=== PATIENT | female | born 1990 | race Caucasian/White ===

== ENCOUNTER → 2018-09-07 | Outpatient (REF) | payer OTHER | LOC: M SFHCLERA 12:34 | PROVIDERS: ATTEND Nurse Practitioner Family | DX: J02.9 Acute pharyngitis, unspecified (principal) ==

== ENCOUNTER 2020-03-29 08:22 | Day surgery (SDC) | payer OTHER ==
[~2020-03-29] VITALS: Ht 160 cm; Wt 86.2 kg
[~2020-03-29 08:22] MED LIST: CEFUROXIME 1MG/0.1ML INTRACAMERAL INJ As Ordered ONE; DUOVISC (0.50ML VISCOAT/0.55ML PROVISC) OPHTH KIT As Ordered ONE; MIDAZOLAM INJ 2MG/2ML VIAL (J2250 PER 1MG) As Ordered ONE; OFLOXACIN 0.3 % (OCUFLOX) OPTH SOL 5ML OS ONE; PHENYLEPHRINE 2.5% OPHTH SOL 2ML OS ONE; POVIDONE-IODINE 5% OPHTH PREP SOL 30ML As Ordered ONE; PROPARACAINE 0.5% OPHTH SOL 15ML OS ONE; TROPICAMIDE 1% OPHTH SOLN 2ML OS ONE; fentaNYL 100 MCG/2 ML INJECTION (J3010) As Ordered ONE
[2020-03-29] MEDS ORDERED: BSS IRR 500ML/OMIDRIA 4ML IRR BAG (OR ONLY) As Ordered ONE (09:57)
[2020-03-29 10:55] VITALS: BP 130/75
--- NOTE | 2020-03-30 10:21 | RO ---
OPERATIVE NOTE DATE OF OPERATION: 03/29/2020 PREOPERATIVE DIAGNOSIS: 1. Visually significant nuclear sclerotic cataract, left eye. POSTOPERATIVE DIAGNOSIS: 1. Visually significant nuclear sclerotic cataract, left eye. PROCEDURE: 1. Cataract extraction with use of phacoemulsification, and placement of intraocular lens, AU00T0, 7.0 D, left eye. SURGEON: Nikolai Cottrell DO ANESTHESIA: Local (Omidria with MAC) COMPLICATIONS: None POSTOPERATIVE CONDITION: Stable INDICATIONS FOR SURGERY: 1. Blurred vision affecting patient's activities of daily living. DESCRIPTION OF PROCEDURE: The patient was seen in the preoperative area and properly identified. The correct operative eye was identified and marked. The patient received topical anesthetic, antibiotics, and topical dilating drops. The patient was then transferred to the operating room. The correct side was re-identified and a time-out was performed. The eye was prepped and draped in a sterile fashion. The eyelids were isolated with Tegaderm tape and the lids were held open with an adjustable speculum. A 1.0mm paracentesis incision was made. Omidria was then injected into the anterior chamber. Viscoelastic was then injected into the anterior chamber through the paracentesis. Using a 2.4mm sharp-tipped keratome, the anterior chamber was entered via a temporal clear cornea incision. A continuous curvilinear capsulorrhexis was created with Utrata forceps. Hydrodissection was performed with BSS on a blunt cannula until the nucleus was able to rotate freely. The crystalline lens was phacoemulsified and aspirated. Irrigation/aspiration was used to remove the cortical material Cohesive viscoelastic was placed into the capsular bag to deepen it. The implant was placed into the capsular bag and allowed to unfold. Placement was confirmed by visualizing the anterior capsulorrhexis. Irrigation/aspiration was used to remove the viscoelastic. The clear corneal incision was hydrated with BSS on a blunt cannula. The lens was well positioned. Intracameral antibiotic was injected into the anterior chamber. The incisions were then tested for leaks and found to be negative. The eye was then palpated for appropriate pressure and adjusted accordingly with BSS. The eyelid speculum was then carefully removed. A shield was placed over the eye. The patient tolerated the procedure well and was discharge to the recovery unit in a stable condition.
== END 2020-03-29 11:05 | disposition home or self-care (01) ==
LOC: M SDC 08:22
PROVIDERS: ATTEND Ophthalmology
DX: H25.12 Age-related nuclear cataract, left eye (principal); K21.9 Gastro-esophageal reflux disease without esophagitis; F41.9 Anxiety disorder, unspecified; E73.9 Lactose intolerance, unspecified
CPT/HCPCS: 66984; 81025; J1097; J2250; J3010; L8699

== ENCOUNTER 2020-04-05 08:13 | Day surgery (SDC) | payer OTHER ==
[~2020-04-05] VITALS: Ht 160 cm; Wt 88.4 kg
[~2020-04-05 08:13] MED LIST changes: +OFLOXACIN 0.3 % (OCUFLOX) OPTH SOL 5ML OD ONE; -OFLOXACIN 0.3 % (OCUFLOX) OPTH SOL 5ML OS ONE; +PHENYLEPHRINE 2.5% OPHTH SOL 2ML OD ONE; -PHENYLEPHRINE 2.5% OPHTH SOL 2ML OS ONE; +PROPARACAINE 0.5% OPHTH SOL 15ML OD ONE; -PROPARACAINE 0.5% OPHTH SOL 15ML OS ONE; +TROPICAMIDE 1% OPHTH SOLN 2ML OD ONE; -TROPICAMIDE 1% OPHTH SOLN 2ML OS ONE
--- OUTSIDE RECORDS SUMMARY | 2020-04-05 08:19 | CCD | Continuity of Care Document ---
Author Author Maria Esther ALEXIS FLOORING HELPER Organization Unknown Address [facility] [address] [place] [address] Phone [phone] Care Team Providers Care Assembler Utility Buildings Name Role Phone [facility] AUTM [phone] Problems Active Problems Provider Date Family problems Aren Alexis LCSW Onset: 11/10/2019 Anxiety state Aren Alexis LCSW Onset: 11/10/2019 Social History Type Date Description Comments Sex Unknown Allergies, Adverse Reactions, Alerts Active Allergies Reaction Severity Comments Date NKDA 12/01/2019 Lactose (Intolerance) 2019 NKEA 12/01/2019 Medications Active Medications SIG Qnty Indications Ordering Provide r Date Multivitamin Adult Tablets Unknown Immunizations Description No Information Available Vital Signs Date Vital Result Comment 12/01/2019 12:59pm BP Systolic Sitting 122 mmHg BP Diastolic Sitting 75 mmHg Heart Rate 78 /min Body Temperature 98.1 F Oral Respiratory Rate 16 /min O2 % BldC Oximetry 98 % Weight 200.50 lb Weight 90.947 kg Height 63 inches 5'3" BMI (Body Mass Index) 35.5 kg/m2 BSA (Body Surface Area) 1.94 m2 Results Test Acquired Date Facility Test Result H/L Range Note [facility] Toxassure Select 13 12/01/2019 Alondra veliz Summary Report (Summary) FINAL 1, 2 PDF . 1 {DIAGNOSIS: F41.8~{MEDICATI ONS/DECLARED: NO MEDCATIONS PRESCIBED~{PRESCRIPTION INFO:~{PRESCRIPT 2 TOXASSURE SELECT 13 (MW) Test Result Flag Units NO DRUGS DETECTED. Test Result Flag Units Ref Range Creatinine 121 mg/dL >=20 Declared Medications: The flagging and interpretation on this report are based on the following declared medications. Unexpected results may arise from inaccuracies in the declared medications. No medication use reported. For clinical consultation, please call . Procedures Date Code Description Status 01/27/2020 44217 Psychiatric Diag Eval W/Medical Service Completed 11/10/2019 51214 Psychiatric Diagnostic Evaluatio n Completed Medical Devices Description No Information Available Encounters Description No Information Available Assessments Date Code Description Provider 01/27/2020 F41.0 Panic disorder [episodic paroxys mal anxiety] Rolando Marina PA-C 01/16/2020 F41.8 Other specified anxiety disorder s Aren Alexis, [facility] 01/16/2020 Z63.0 Problems in relationship with sp ouse or partner Aren Pickens, [facility] 12/16/2019 F41.8 Other specified anxiety disorder s Aren Alexis, [facility] 12/16/2019 Z63.0 Problems in relationship with sp ouse or partner Aren Reuben, [facility] 12/01/2019 F41.8 Other specified anxiety disorder s Isabel Jones, RN 12/01/2019 Z63.0 Problems in relationship with sp ouse or partner Isabel Jones, RN 11/28/2019 F41.8 Other specified anxiety disorder s Aren Alexis, [facility] 11/28/2019 Z63.0 Problems in relationship with sp ouse or partner Aren Pickens, [facility] 11/10/2019 F41.8 Other specified anxiety disorder s Aren Alexis, [facility] 11/10/2019 Z63.0 Problems in relationship with sp ouse or partner Aren Reuben, [facility] Plan of Treatment Future Appointment(s):* 03/22/2020 11:00 am - [facility] * 03/01/2020 11:00 am - Aren Alexis LCSW at [facility] Functional Status Description No Information Available Mental Status Description No Information Available Referrals Description No Information Available
--- OUTSIDE RECORDS SUMMARY | 2020-04-05 08:19 | CCD ---
Author Author Donn Santos MD [facility] Organization Donn Santos MD [facility] Address [address] [address] Phone Care Team Providers Care Water Aerobics Instructor Name Role Phone Simba COLLIER Nikolai Unavailable [phone] Reason for Referral No Reason for Referral Recorded Problems Includes: Active, inactive, and resolved Problems All Visits Onset Date - Time Resolved Date - Time Provider Co ndition Status Cataract Senile Posterior Subcapsular Polar 02/03/2020 - 12:00AM Nikolai Cottrell DO Active Posterior Vitreous Detachment 02/03/2020 - 12:00AM Maycol Cottrell DO Active Plan of Treatment Referrals To Diagnosis Referral to [facility] Donn Santos MD, FACS Vitreous de generation, bilateral Future Appointments Date Time Location Provider POST OP VISIT WITH PRE-OP 03/30/2020 1:20PM Donn chapa MD [facility] Nikolai Cottrell DO Extracapsular cataract removal w/IOL implant 04/05/2020 8:0 0AM [facility] Nikolai Cottrell DO 1 Week Post OP 04/13/2020 1:20PM Donn Santos MD [facility] Darnell attleslie Cottrell DO Findings Encounter Date Requested Referred to: Dr. Duek NEW PATIENT WITH R EFERRAL with Nikolai Cottrell DO 02/03/2020 Assessments Includes: Assessments for all patient encounters Findings Encounter Date Posterior subcapsular polar senile cataract 1 WK PREOP FOR SURGERY with Nikolai Cottrell DO 03/19/2020 Posterior subcapsular polar senile cataract NEW PATIEN T WITH REFERRAL with Nikolai Cottrell DO 02/03/2020 Posterior vitreous detachment NEW PATIENT WITH REFERRA L with Nikolai Cottrell DO 02/03/2020 Instructions Instructions not supported for this document typeNo Instructions Recorded Medical Equipment - Implanted Devices Includes: Current and historical DevicesNo Medical Equipment Recorded Medications Includes: Current and historical Medications Current Medications (continue as prescribed) Moxifloxacin HCl 0.5% Ophthalmic Solution 03/19/2020 Provider: Nikolai Cottrell DO Diagnosis: 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, bilateral Three days prior to surgery start one drop four times a day in the left eye Durezol 0.05% Ophthalmic Emulsion 03/19/2020 Provid er: Nikolai Cottrell DO Diagnosis: 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, bilateral Day of surgery remove patch start one drop four times a day in the left eye Ilevro 0.3% Ophthalmic Suspension 03/19/2020 Provid er: Nikolai Cottrell DO Diagnosis: 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, bilateral Three days prior to surgery start one drop two times a day i n the left eye Medications Administered Includes: Administered Medications in patient's chartNo Administered Medications Recorded Vital Signs Includes: Vital Signs from 03/30/2019 through 03/30/2020No Vital Signs Recorded For Specified Dates Results Includes: Results from 03/30/2019 through 03/30/2020No Results Recorded For Specified Dates History of Present Illness History of Present Illness not supported for this document typeNo History of Present Illness Recorded Social History Description Last Updated Smoking 2 cigarettes per day 02/03/2020 Current smoker 02/03/2020 Not using alcohol 02/03/2020 Not using drugs 02/03/2020 Tobacco use 02/03/2020 Smoking status : Current everyday smoker 02/03/2020 Procedures and Surgical History Includes: Procedures from 03/30/2019 through 03/30/2020 Procedures Code Diagnosis Performing Provider Service Location Service Date Intermediate Eye Exam Established Patient (Signi/Sep Eval. & Man.) 71453 Posterior subcapsular polar age-related cataract, left eye Nikolai Goodman MD [facility] 03/19/2020 Ophthalmic biometry - IOL Master with IOL calculation (Left side) 68281 Posterior subcapsular polar age-related cataract, left eye Nikolai Goodman MD [facility] 03/19/2020 Medical Eye Exam 03966 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, bilateral, Vitreous degeneration, bilateral Nikolai Zee MD [facility] 02/03/2020 Surgical History Last Updated No surgical / procedural history 02/03/2020 Medical History Includes: Medical History in patient's chart Description Last Updated Reported medical history Anxiety 02/03/2020 Family History Includes: Family History in patient's chart Description Last Updated Paternal history of diabetes mellitus 02/03/2020 Paternal history of glaucoma 02/03/2020 Review of Systems Review of Systems not supported for this document typeNo Review of Systems Recorded Mental Status Mental Status not supported for this document typeNo Mental Status Recorded Functional Status Functional Status not supported for this document typeNo Functional Status Recorded Physical Exam Physical Exam not supported for this document typeNo Physical Exam Recorded Immunizations Includes: Immunizations in patient's chartNo Immunizations Recorded Allergies Includes: Active, inactive, and resolved AllergiesNo Known Allergies Encounters Includes: Encounters from 03/30/2019 through 03/30/2020 Encounter Provider Location Date Check-In Time Check-Out Time D iagnosis Extracapsular cataract removal w/IOL implant Nikolai viera [facility] 03/29/2020 7:04AM 7:04AM 1 WK PREOP FOR SURGERY Nikolai Goodman MD [facility] 03/19/2020 8:41AM 10:16AM Cataract Senile Posterior Mak bcapsular Polar NEW PATIENT WITH REFERRAL Nikolai Goodman MD [facility] 02/03/2020 9:30AM 10:48AM Cataract Senile Post erior Subcapsular Polar, Posterior Vitreous Detachment Insurance Includes: Active Insurance Policies Plan Name Member ID Group # Subscriber Relationship Effective [address] ([facility] ([facility]) [id number] Joe Telles Advance Directives Includes: Current Advance DirectivesNo Advance Directives Recorded Health Concerns Includes: Active Health ConcernsNo Active Health Concerns Recorded Goals Includes: Active GoalsNo Active Goals Recorded Interventions Includes: Interventions for active GoalsNo Interventions Recorded Evaluations & Outcomes Includes: Evaluations & Outcomes for active GoalsNo Outcomes Recorded
--- OUTSIDE RECORDS SUMMARY | 2020-04-05 08:19 | CCD | Continuity of Care Document ---
Author Author Maria Esther ALEXIS [facility] Organization Unknown Address [facility] [address] [place] [address] Phone [phone] Care Team Providers Care Brand Ambassador Promotional Model Name Role Phone [facility] AUTM [phone] Problems Active Problems Provider Date Family problems [...] call . Procedures Date Code Description Status 11/10/2019 05592 Psychiatric Diagnostic Evaluatio n Completed Medical Devices Description No Information Available Encounters Description No Information Available Assessments Date Code Description Provider 12/16/2019 F41.8 Other specified anxiety disorder s Arencrissy Alexis, [employer]UTIONS SPECIALIST 12/16/2019 Z63.0 Problems in relationship with sp ouse or partner Aren Alexis, PERFORMAN[employer] SOLUTIONS SPECIALIST 12/01/2019 F41.8 Other specified anxiety disorder s Isabel Jones RN 12/01/2019 Z63.0 Problems in relationship with sp ouse or partner Isabel Jones RN 11/28/2019 F41.8 Other specified anxiety disorder s Aren Reuben, PERFORMAN[employer] SOLUTIONS SPECIALIST 11/28/2019 Z63.0 Problems in relationship with sp ouse or partner Aren Reuben, PERFORMANCE SOLUTIONS SPECIALIST 11/10/2019 F41.8 Other specified anxiety disorder s Aren Reuben, PERFORMANCE SOLUTIONS SPECIALIST 11/10/2019 Z63.0 Problems in relationship with sp ouse or partner Aren Alexis, PERFORMAN[employer] SOLUTIONS SPECIALIST Plan of Treatment Future Appointment(s):* 03/01/2020 11:00 am - Aren Alexis LCSW at [facility] * 02/09/2020 11:00 am - Aren Alexis LCSW at [facility] * 01/27/2020 12:00 pm - Rolando Marina PA-C at [facility] Functional Status Description No Information Available Mental Status Description No Information Available Referrals Description No Information Available
--- OUTSIDE RECORDS SUMMARY | 2020-04-05 08:19 | CCD | Continuity of Care Document ---
Author Author Maria Esther MARINA PAOnielC Organization Unknown Address [facility] [address] [place] [address] Phone [phone] Care Team Providers Care Stock Transfer Clerk Name Role Phone [facility] AUTM [phone] Problems Active Problems Provider Date Family problems [...] . Procedures Date Code Description Status 01/27/2020 23704 Psychiatric Diag Eval W/Medical Service Completed 11/10/2019 90544 Psychiatric Diagnostic Evaluatio n Completed Medical Devices Description No Information Available Encounters Description No Information Available Assessments Date Code Description Provider 01/27/2020 F41.0 Panic disorder [episodic paroxys mal anxiety] Rolando Marina PA-C 01/16/2020 F41.8 Other specified anxiety disorder s Aren Alexis, [facility] 01/16/2020 Z63.0 Problems in relationship with sp ouse or partner Aren Reuben, [facility] 12/16/2019 F41.8 Other specified anxiety disorder s Aren Reuben, [facility] 12/16/2019 Z63.0 Problems in relationship with sp ouse or partner Aren Reuben, [facility] 12/01/2019 F41.8 Other specified anxiety disorder s Isabel Jones, RN 12/01/2019 Z63.0 Problems in relationship with sp ouse or partner Isabel Jones RN 11/28/2019 F41.8 Other specified anxiety disorder s Aren Alexis, [facility] 11/28/2019 Z63.0 Problems in relationship with sp ouse or partner Aren Reuben, [facility] 11/10/2019 F41.8 Other specified anxiety disorder s Aren Alexis, [facility] 11/10/2019 Z63.0 Problems in relationship with sp ouse or partner Aren Reuben, [facility] Plan of Treatment Future Appointment(s):* 03/01/2020 11:00 am - Aren Alexis LCSW at [facility] * 02/09/2020 11:00 am - Aren Alexis LCSW at [facility] Functional Status Description No Information Available Mental Status Description No Information Available Referrals Description No Information Available
--- OUTSIDE RECORDS SUMMARY | 2020-04-05 08:19 | CCD ---
Author Author Donn Santos MD [facility] Organization Donn Santos MD [facility] Address [address] [address] Phone Care Team Providers Care Bean Dumper Name Role Phone Simba COLLIER Nikolai Unavailable [phone] Reason for Referral No Reason for Referral [...] Santos MD, FACS Vitreous de generation, bilateral Findings Encounter Date Requested Referred to: Dr. Duke NEW PATIENT WITH R EFERRAL with Nikolai Cottrell DO 02/03/2020 Assessments Includes: Assessments for all patient encounters Findings Encounter Date Posterior subcapsular polar senile cataract NEW PATIEN T WITH REFERRAL with Nikolai Cottrell DO 02/03/2020 Posterior vitreous detachment NEW PATIENT WITH REFERRA L with Nikolai Cottrell DO 02/03/2020 Instructions Instructions not supported for this document typeNo Instructions Recorded Medical Equipment - Implanted Devices Includes: Current and historical DevicesNo Medical Equipment Recorded Medications Includes: Current and historical MedicationsNo Medications Taken Medications Administered Includes: Administered Medications in patient's chartNo Administered Medications Recorded Vital Signs Includes: Vital Signs from 02/02/2019 through 02/03/2020No Vital Signs Recorded For Specified Dates Results Includes: Results from 02/02/2019 through 02/03/2020No Results Recorded For Specified Dates History of Present Illness History of Present Illness not supported for this document typeNo History of Present Illness Recorded Social History Description Last Updated Smoking 2 cigarettes per day 02/03/2020 Current smoker 02/03/2020 Not using alcohol 02/03/2020 Not using drugs 02/03/2020 Tobacco use 02/03/2020 Smoking status : Current everyday smoker 02/03/2020 Procedures and Surgical History Includes: Procedures from 02/02/2019 through 02/03/2020 Procedures Code Diagnosis Performing Provider Service Location Service Date Medical Eye Exam 95749 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, bilateral, Vitreous degeneration, bilateral Nikolai Cottrell DO 02/03/2020 Surgical History Last Updated No surgical [...] Mental Status not supported for this document type Description Oriented to time, place, and person Anxiety Functional Status Functional Status not supported for this document typeNo Functional Status Recorded Physical Exam Physical Exam not supported for this document typeNo Physical Exam Recorded Immunizations Includes: Immunizations in patient's chartNo Immunizations Recorded Allergies Includes: Active, inactive, and resolved AllergiesNo Known Allergies Encounters Includes: Encounters from 02/02/2019 through 02/03/2020 Encounter Provider Location Date Check-In Time Check-Out Time D iagnosis NEW PATIENT WITH REFERRAL Nikolai Goodman MD [facility] 02/03/2020 9:30AM 10:48AM Cataract Senile Post erior Subcapsular Polar, Posterior Vitreous Detachment Insurance Includes: Active Insurance Policies Plan Name Member ID Group # Subscriber Relationship Effective Da jovan 1 - ([facility] [id number] Joe Telles Advance Directives Includes: Current Advance DirectivesNo Advance Directives Recorded Health Concerns Includes: Active Health ConcernsNo Active Health Concerns Recorded Goals Includes: Active GoalsNo Active Goals Recorded Interventions Includes: Interventions for active GoalsNo Interventions Recorded Evaluations & Outcomes Includes: Evaluations & Outcomes for active GoalsNo Outcomes Recorded
--- OUTSIDE RECORDS SUMMARY | 2020-04-05 08:19 | CCD ---
Author Author [facility] Organization [facility] Address Unknown Phone Unavailable Care Team Providers Care Motor Vehicle Licence Examiner Name Role Phone LETICIA PATRICK Unavailable Unavailable MEDENT_[id number], [phone] Unavailable Unavailable Chano Rosenbaum MD Unavailable Unavailable Chano Rosenbaum MD Unavailable Unavailable Chano Rosebnaum MD Unavailable Unavailable Chano Rosenbaum MD Unavailable Unavailable Chano Rosenbaum MD Unavailable Unavailable Chano Rosenbaum MD Unavailable Unavailable Chano Rosenbaum MD Unavailable Unavailable Chano Rosenbaum MD Unavailable Unavailable Chano Rosenbaum MD Unavailable Unavailable Chano Rosenbaum MD Unavailable Unavailable Chano Rosenbaum MD Unavailable Unavailable Chano Rosenbaum MD Unavailable Unavailable Chano Rosenbaum MD Unavailable Unavailable hCano Rosenbaum MD Unavailable Unavailable Chano Rosenbaum MD Unavailable Unavailable Chano Rosenbaum MD Unavailable Unavailable Chano Rosenbaum MD Unavailable Unavailable Chano Rosenbaum MD Unavailable Unavailable Chano Rosenbaum MD Unavailable Unavailable Chano Rosenbaum MD Unavailable Unavailable Chano Rosenbaum MD Unavailable Unavailable Chano Rosenbaum MD Unavailable Unavailable Chano Rosenbaum MD Unavailable Unavailable Chano Rosenbaum MD Unavailable Unavailable Chano Rosenbaum MD Unavailable Unavailable Chano Rosenbaum MD Unavailable Unavailable Chano Rosenbaum MD Unavailable Unavailable Lynda MATTA Unavailable Unavailable MATTA, J HARSH PA Unavailable Unavailable MATTA, J HARSH PA Unavailable Unavailable MATTA, J HARSH PA Unavailable Unavailable MATTA, J HARSH PA Unavailable Unavailable MATTA, J HARSH PA Unavailable Unavailable MATTA, J HARSH PA Unavailable Unavailable MATTA, J HARSH PA Unavailable Unavailable MATTA, J HARSH PA Unavailable Unavailable MATTA, J HARSH PA Unavailable Unavailable MATTA, J HARSH PA Unavailable Unavailable MATTA, J HARSH PA Unavailable Unavailable MATTA, J HARSH PA Unavailable Unavailable MATTA, J HARSH PA Unavailable Unavailable MATTA, J HARSH PA Unavailable Unavailable MATTA, J HARSH PA Unavailable Unavailable MATTA, J HARSH PA Unavailable Unavailable MATTA, J HARSH PA Unavailable Unavailable MATTA, J HARSH PA Unavailable Unavailable MATTA, J HARSH PA Unavailable Unavailable MATTA, J HARSH PA Unavailable Unavailable MATTA, J HARSH PA Unavailable Unavailable MATTA, J HARSH PA Unavailable Unavailable MATTA, J HRASH PA Unavailable Unavailable MATTA, J HARSH PA Unavailable Unavailable MATTA, J HARSH PA Unavailable Unavailable MATTA, J HARSH PA Unavailable Unavailable Jack COTTRELLEW DO Unavailable [phone] Jack COTTRELLEW DO Unavailable [phone] Jack COTTRELLEW DO Unavailable [phone] Jack COTTRELLEW DO Unavailable [phone] Jack COTTRELLEW DO Unavailable [phone] Jack COTTRELLEW DO Unavailable [phone] Jack COTTRELLEW DO Unavailable [phone] Jack COTTRELLEW DO Unavailable [phone] Jack COTTRELLEW DO Unavailable [phone] Jack COTTRELLEW DO Unavailable [phone] Jack COTTRELLEW DO Unavailable +[phone] Jack COTTRELLEW DO Unavailable +[phone] Jack COTTRELLEW DO Unavailable +[phone] Jack COTTRELLEW DO Unavailable +[phone] Jack COTTRELLEW DO Unavailable [phone] Jack COTTRELL DO Unavailable [phone] Jack COTTRELL DO Unavailable [phone] Jack COTTRELL DO Unavailable [phone] Jack COTTRELL DO Unavailable [phone] Jack COTTRELL DO Unavailable [phone] Jack COTTRELL DO Unavailable [phone] Re-disclosure Warning The records that you are about to access may contain information from federally-assisted alcohol or drug abuse programs. If such information is present, then the following federally mandated warning applies: This information has been disclosed to you from records protected by federal confidentiality rules (42 CFR part 2). The federal rules prohibit you from making any further disclosure of this information unless further disclosure is expressly permitted by the written consent of the person to whom it pertains or as otherwise permitted by 42 CFR part 2. A general authorization for the release of medical or other information is NOT sufficient for this purpose. The Federal rules restrict any use of the information to criminally investigate or prosecute any alcohol or drug abuse patient.The records that you are about to access may contain highly sensitive health information, the redisclosure of which is protected by Article 27-F of the [facility] Public Health law. If you continue you may have access to information: Regarding HIV / AIDS; Provided by facilities licensed or operated by the [facility] Office of Mental Health; or Provided by the [facility] Office for People With Developmental Disabilities. If such information is present, then the following [facility] mandated warning applies: This information has been disclosed to you from confidential records which are protected by state law. State law prohibits you from making any further disclosure of this information without the specific written consent of the person to whom it pertains, or as otherwise permitted by law. Any unauthorized further disclosure in violation of state law may result in a fine or mcc sentence or both. A general authorization for the release of medical or other information is NOT sufficient authorization for further disc losure. Allergies and Adverse Reactions Type Description Substance Reaction Status Data Source(s ) Allergy to substance No Known Allergies No known allergies (situation ) FREDY Leiva MD [facility]) Allergy to substance No Known Allergies No known allergies (situation ) RFEDY (Donn Leiva MD [facility]) Encounters Encounter Providers Location Date Indications Data Source(s ) Outpatient<td ID="encounterTypeDescripti onID0">Extracapsular cataract removal w/IOL implant</td><td>Susan Cottrell DO</td><td>[facility]</td><td>03/29/2020</td><td>7:04AM</td><td>7:04AM</td><td></td> Attender: SUSAN COTTRELL DO [facility] 03/29/2020 07:04:00 AM EST - 03/29/2020 07:04:00 AM EST FREDY (Donn chapa MD [facility]) Outpatient Attender: LETICIA PATRICK 021 10:52:00 AM EST - 03/22/2020 10:52:00 AM [facility] Outpatient<td ID="encounterTypeDescripti onID1">1 WK PREOP FOR SURGERY</td><td>Susan Cottrell DO</td><td>Donn Santos MD [facility]</td><td>03/19/2020</td><td>8:41AM</td><td>10:16AM</td><td><content ID="encounterDiagnosisID1-0">Cataract Senile Posterior Subcapsular Polar</content></td> Attender: SUSAN Goodman MD [facility] 03/19/2020 08:41:00 AM EST - 03/19/2020 10:16:00 AM EST Cataract Senile Posterior Subcapsular Polar FREDY (Donn Leiva MD [facility]) Cataract Senile Posterior Subcapsular Po lar Outpatient Attender: LETICIA PATRICK 020 10:37:00 AM EST - 02/09/2020 10:37:00 AM [facility] Outpatient<td ID="encounterTypeDescripti onID2">NEW PATIENT WITH REFERRAL</td><td>Susan Cottrell DO</td><td>Donn Santos MD [facility]</td><td>02/03/2020</td><td>9:30AM</td><td>10:48AM</td><td><content ID="encounterDiagnosisID2-0">Cataract Senile Posterior Subcapsular Polar</content>, <content ID="encounterDiagnosisID2-1">Posterior Vitreous Detachment</content></td> Attender: SUSAN Goodman MD [facility] 02/03/2020 09:30:00 AM EST - 02/03/2020 10:48:00 AM ES T Posterior Vitreous DetachmentCataract Senile Posterior Subcapsular PolarPosterior Vitreous DetachmentCataract Senile Posterior Subcapsular Polar FREDY (Donn Leiva MD [facility]) Posterior Vitreous Detachment Cataract Senile Posterior Subcapsular Po lar Posterior Vitreous Detachment Cataract Senile Posterior Subcapsular Po lar Outpatient Attender: HARSH GALEANA 01/26 11:50:00 AM EST - 01/27/2020 11:50:00 AM [facility] Outpatient Attender: LETICIA PATRICKReferrer: Sree zepeda MD 01/16/2020 10:42:00 AM EST - 01/16/2020 10:42:00 AM [facility] Outpatient Attender: LETICIA PATRICK 020 01:38:00 PM EDT - 12/16/2019 01:38:00 PM EDT [facility] Outpatient Attender: [id number] [id number] 12/01/2019 01:00:00 PM EDT [facility] ([facility]) Outpatient Attender: HARSH Sunshine tender: LETICIA PATRICKReferrer: Sree Rosenbaum MD 12/01/2019 12:45:00 PM EDT - 12/01/2019 12:45:00 PM EDT [facility] Outpatient Attender: LETICIA PATRICKReferrer: Sree zepeda MD 11/28/2019 12:43:00 PM EDT - 11/28/2019 12:43:00 PM EDT [facility] Outpatient Attender: LETICIA ALCORNReferrer: Sree zepeda MD 11/10/2019 01:44:00 PM EDT - 11/10/2019 01:44:00 PM EDT [facility] Outpatient [address] [facility] [id number] 09/12/2019 12:00:00 AM EDT eCW1 ([facility]) Medications Medication Brand Name Start Date Product Form Dose Route Admi nistrative Instructions Pharmacy Instructions Status Indications Reaction Description Data Source(s) moxifloxacin 5 MG/ML Ophthalmic Solution Moxifloxacin HCl 0.5% Ophthalmic Solution Moxifloxacin HCl 0.5% Ophthalmic Solution 03/19/2020 12:00:00 AM EST active moxifloxacin 5 MG/ML Oph thalmic Solution FREDY (Donn Leiva MD [facility]) difluprednate 0.5 MG/ML Ophthalmic Suspe nsion [Durezol] Durezol 0.05% Ophthalmic Emulsion Durezol 0.05% Ophthalmic Emulsion 03/19/2020 12:00:00 AM EST active difluprednate 0.5 MG/ML Opht halmic Suspension [Durezol] FREDY (Donn Leiva MD [facility]) nepafenac 3 MG/ML Ophthalmic Suspension [Ilevro] Ilevro 0.3% Ophthalmic Suspension Ilevro 0.3% Ophthalmic Suspension 03/19/2020 12:00:00 AM EST active nepafenac 3 MG/ML Ophthalmic Suspension [Ilevro] FREDY (Donn Leiva MD [facility]) Insurance Providers Payer name Policy type / Coverage type Policy ID Covered constitution party ID Covered constitution party's relationship to [place]ston Policy [place] Plan Information Content Fleet [id number] [facility] [id number] [employer] [place] [id number] [facility] [employer] [place] [id number] ANSI-Not a Secondary Insurance [id number] Problems, Conditions, and Diagnoses Code Display Name Description Problem Type Effective Dates Data Source(s) 379.21 Posterior Vitreous Detachment Posterior Vitreous Detac hment Problem 02/03/2020 12:00:00 AM EST FREDY (Donn Leiva MD [facility]) 366.14 Cataract Senile Posterior Subcapsular Po lar Cataract Senile Posterior Subcapsular Polar Problem 02/03/2020 12:00:00 AM EST FREDY (Candido Leiva MD [facility]) 379.21 Posterior Vitreous Detachment Posterior Vitreous Detac hment Problem 02/03/2020 12:00:00 AM EST FREDY (Donn Leiva MD [facility]) 366.14 Cataract Senile Posterior Subcapsular Po lar Cataract Senile Posterior Subcapsular Polar Problem 02/03/2020 12:00:00 AM EST FREDY (Candido Leiva MD [facility]) [id number] Anxiety state Anxiety state Problem 11/10/2019 12:00:00 AM EDT MED[facility] ([facility]) [id number] Family problems Family problems Problem 11/10/2019 12:0 0:00 AM EDT [facility] ([facility]) F410 Panic disorder [episodic paroxysmal anxi ety] Panic disorder [episodic paroxysmal anxiety] Diagnosis 02/09/2020 10:37:00 AM [facility] Z630 Problems in relationship with spouse or partner Problems in relationship with spouse or partner Diagnosis 01/16/2020 10:42:00 AM [facility] F418 Other specified anxiety disorders Other specifie d anxiety disorders Diagnosis 01/16/2020 10:42:00 AM [facility] Surgeries/Procedures Procedure Description Date Indications Data Source(s) OPH BMTRY PRTL COHER INTRFRMTRY IO LENS PWR LION Ophtha lmic biometry - IOL Master with IOL calculation (Left side) 03/19/2020 12:00:00 AM EST FREDY (Donn Leiva MD [facility]) Intermediate Eye Exam Established Patient (Signi/Sep E sebastien. & Man.) Intermediate Eye Exam Established Patient (Signi/Sep Eval. & Man.) 03/19/2020 12:00:00 AM EST FREDY (Donn Leiav MD [facility]) No surgical / procedural history No surgical / procedural hi story 02/03/2020 12:00:00 AM EST FREDY (Donn Leiva MD [facility]) Medical Eye Exam Medical Eye Exam 02/03/2020 12:00:00 AM EST FREDY (Donn Leiva MD [facility]) Medical Eye Exam Medical Eye Exam 02/03/2020 12:00:00 AM EST FREDY (Donn Leiva MD [facility]) Psychiatric Diag Eval W/Medical Service 01/27/2020 12: 00:00 AM EST [facility] ([facility]) Psychiatric Diagnostic Evaluation 11/10/2019 12:00:00 AM EDT [facility] ([facility]) Results ID Date Data Source [id number] 03/26/2020 10:16:00 AM EST [facility] Name Value Range Interpretation Code Description Data Chelsea rce(s) Supporting Document(s) SARS coronavirus 2 RNA Not Detected [facility] [place] This lab was ordered by [facility] Laboratory and reported by [facility]. ID Date Data Source [id number] 12/01/2019 01:37:00 PM EDT [facility] ([facility]) Name Value Range Interpretation Code Description Data Chelsea rce(s) Supporting Document(s) Laboratory test finding (navigational concept) Laboratory test result MED[facility] ([facility]) {DIAGNOSIS: F41.8~{MEDICATIONS/DECLARED : NO MEDCATIONS PRESCIBED~{PRESCRIPTION INFO:~{PRESCRIPT PDF Laboratory test result [facility] ([facility]) {DIAGNOSIS: F41.8~{MEDICATIONS/DECLARED : NO MEDCATIONS PRESCIBED~{PRESCRIPTION INFO:~{PRESCRIPT ID Date Data Source [id number] 12/08/2019 06:31:00 AM EDT [facility] Name Value Range Interpretation Code Description Data Chelsea rce(s) Supporting Document(s) Drugs identified in Urine FINAL [facility] TOXASSURE SELECT 13 (MW) Test Result Flag Units NO DRUGS DETECTED. Nicole t Result Flag Units Ref Range Creatinine 121 mg/dL > =20 Declared Medications: The flagging and interpretation on this report are based on the following declared medications. Unexpected results may arise from inaccuracies in the declared medications. No medication use reported. For clinical consultation, please call . Report . [facility] Procedure Social History Code Duration Value Status Description Data Source(s ) Smoking 02/03/2020 10:55:21 AM EST Smokes tobacco daily (findi ng) completed Smokes tobacco daily (finding) FREDY (Donn Leiva MD [facility]) Smoking 09/12/2019 12:00:00 AM EDT Never Smoker completed Never S magan eCW1 ([facility]) Vital Signs ID Date Data Source UNK Name Value Range Interpretation Code Description Data Source(s) Body surface area Derived from formula 1.94 m2 1.94 m2 [facility] ([facility]) Body mass index (BMI) [Ratio] 35.5 kg/m2 35.5 k g/m2 MED[facility] ([facility]) Body height 63 [in_i] 63 [in_i] MED[facility] ([facility]) 5'3" Body weight 90.947 kg 90.947 kg MED[facility] ([facility]) Body weight 200.50 [lb_av] 200.50 [lb_av] MEDEN T ([facility]) Oxygen saturation in Arterial blood by Pulse oximetry 98 % 98 % [facility] ([facility]) Respiratory rate 16 /min 16 /min [facility] ( [facility]) Body temperature 98.1 [degF] 98.1 [degF] [facility] ([facility]) Oral Heart rate 78 /min 78 /min [facility] ([facility]) Diastolic blood pressure--sitting 75 mm[Hg] 75 mm[Hg] [facility] ([facility]) Systolic blood pressure--sitting 122 mm[Hg] 122 mm[Hg] MED[facility] ([facility]) Diastolic blood pressure 89 mm[Hg] 89 mm[Hg] eCW1 ([facility]) Systolic blood pressure 143 mm[Hg] 143 mm[Hg] e CW1 ([facility]) Body temperature 99.9 [degF] 99.9 [degF] eCW1 ( [facility]) Respiratory rate 16 /min 16 /min eCW1 ([facility]) Heart rate 117 /min 117 /min eCW1 ([facility]) Body mass index (BMI) [Ratio] 35.25 kg/m2 35.25 kg/m2 eCW1 ([facility]) Body height 63 [in_i] 63 [in_i] eCW1 ([facility]) Body weight 199 [lb_av] 199 [lb_av] eCW1 ([facility]) Patient Treatment Plan of Care Planned Activity Planned Date Details Description Data Source (s) nepafenac 3 MG/ML Ophthalmic Suspension [Ilevro] 03/19/2020 12:00:0 0 AM EST [place] (Donn Leiva MD [facility]) difluprednate 0.5 MG/ML Ophthalmic Suspension [Durezol ] 03/19/2020 12:00:00 AM EST FREDY (Donn Leiva MD [facility]) moxifloxacin 5 MG/ML Ophthalmic Solution 03/19/2020 12:00:00 AM TANIYA DANIEL (Donn Leiva MD [facility])
--- OUTSIDE RECORDS SUMMARY | 2020-04-05 08:19 | CCD | Continuity of Care Document ---
Author Author Maria Esther ALEXIS POP SINGER Organization Unknown Address [facility] [address] [place] [address] Phone [phone] Care Team Providers Care Airbrush Artist Technical Name Role Phone [facility] AUTM [phone] Problems Active Problems Provider Date Family problems [...] . Procedures Date Code Description Status 01/27/2020 85103 Psychiatric Diag Eval W/Medical Service Completed 11/10/2019 55540 Psychiatric Diagnostic Evaluatio n Completed Medical Devices Description No Information Available Encounters Description No Information Available Assessments Date Code Description Provider 02/09/2020 F41.0 Panic disorder [episodic paroxys mal anxiety] Aren Reuben, [facility] 01/27/2020 F41.0 Panic disorder [episodic paroxys mal anxiety] Rolando Marina PA-C 01/16/2020 F41.8 Other specified anxiety disorder s Aren Maunabo, [facility] 01/16/2020 Z63.0 Problems in relationship with sp ouse or partner Aren Maunabo, [facility] 12/16/2019 F41.8 Other specified anxiety disorder s Aren Reuben, [facility] 12/16/2019 Z63.0 Problems in relationship with sp ouse or partner Aren Maunabo, [facility] 12/01/2019 F41.8 Other specified anxiety disorder s Isabel Jones RN 12/01/2019 Z63.0 Problems in relationship with sp ouse or partner Isabel Jones RN 11/28/2019 F41.8 Other specified anxiety disorder s Aren Reuben, [facility] 11/28/2019 Z63.0 Problems in relationship with sp ouse or partner Aren Reuben, [facility] 11/10/2019 F41.8 Other specified anxiety disorder s Aren Reuben, [facility] 11/10/2019 Z63.0 Problems in relationship with sp ouse or partner Aren Reuben, [facility] Plan of Treatment Future Appointment(s):* 06/21/2020 11:00 am - Aren [facility]is [facility]CS[facility] Functional Status Description No Information Available Mental Status Description No Information Available Referrals Description No Information Available
[2020-04-05] MEDS ORDERED: BSS IRR 500ML/OMIDRIA 4ML IRR BAG (OR ONLY) As Ordered ONE (09:30)
[2020-04-05] MEDS ORDERED: MIDAZOLAM INJ 2MG/2ML VIAL (J2250 PER 1MG) As Ordered ONE (09:34)
[2020-04-05 09:55] VITALS: BP 122/69
--- NOTE | 2020-04-06 09:39 | RO ---
OPERATIVE NOTE DATE OF OPERATION: 04/05/2020 PREOPERATIVE DIAGNOSIS: 1. Visually significant nuclear sclerotic cataract, right eye. POSTOPERATIVE DIAGNOSIS: 1. Visually significant nuclear sclerotic cataract, right eye. PROCEDURE: 1. Cataract extraction with use of phacoemulsification, and placement of intraocular lens, AU00T0, 7.5 D, right eye. SURGEON: Nikolai Cottrell DO ANESTHESIA: Local (Omidria with MAC) COMPLICATIONS: None POSTOPERATIVE CONDITION: Stable INDICATIONS FOR SURGERY: 1. Blurred vision affecting patient's activities of daily living. DESCRIPTION OF PROCEDURE: The patient was seen in the preoperative area and properly identified. The correct operative eye was identified and marked. The patient received topical anesthetic, antibiotics, and topical dilating drops. The patient was then transferred to the operating room. The correct side was re-identified and a time-out was performed. The eye was prepped and draped in a sterile fashion. The eyelids were isolated with Tegaderm tape and the lids were held open with an adjustable speculum. A 1.0mm paracentesis incision was made. Omidria was then injected into the anterior chamber. Viscoelastic was then injected into the anterior chamber through the paracentesis. Using a 2.4mm sharp-tipped keratome, the anterior chamber was entered via a temporal clear cornea incision. A continuous curvilinear capsulorrhexis was created with Utrata forceps. Hydrodissection was performed with BSS on a blunt cannula until the nucleus was able to rotate freely. The crystalline lens was phacoemulsified and aspirated. Irrigation/aspiration was used to remove the cortical material Cohesive viscoelastic was placed into the capsular bag to deepen it. The implant was placed into the capsular bag and allowed to unfold. Placement was confirmed by visualizing the anterior capsulorrhexis. Irrigation/aspiration was used to remove the viscoelastic. The clear corneal incision was hydrated with BSS on a blunt cannula. The lens was well positioned. Intracameral antibiotic was injected into the anterior chamber. The incisions were then tested for leaks and found to be negative. The eye was then palpated for appropriate pressure and adjusted accordingly with BSS. The eyelid speculum was then carefully removed. A shield was placed over the eye. The patient tolerated the procedure well and was discharge to the recovery unit in a stable condition.
== END 2020-04-05 10:24 | disposition home or self-care (01) ==
LOC: M SDC 08:13
PROVIDERS: ATTEND Ophthalmology
DX: H25.11 Age-related nuclear cataract, right eye (principal); K21.9 Gastro-esophageal reflux disease without esophagitis; F41.9 Anxiety disorder, unspecified; F17.290 Nicotine dependence, other tobacco product, uncomplicated; E73.9 Lactose intolerance, unspecified
CPT/HCPCS: 66984; 81025; J1097; J2250; J3010; L8699